=== PATIENT | male | born 1970 | race Caucasian/White ===

== ENCOUNTER 2021-07-24 11:31 | Emergency (ER) | payer OTHER ==
[2021-07-24 12:40] LABS: HEMOGLOBIN 17.6 gm/dl (14.0-17.5); RED BLOOD COUNT 5.28 M/UL (4.20-5.50); WHITE BLOOD COUNT 5.1 K/UL (4.5-11.0)
[2021-07-24 14:06] LABS: BUN/CREATININE RATIO 15 (0-10)
== END 2021-07-24 17:56 | disposition home or self-care (01) ==
LOC: ER1 11:31
PROVIDERS: Physician Assistant
DX: F10.939 Alcohol use, unspecified with withdrawal, unspecified (principal); R07.89 Other chest pain; I25.2 Old myocardial infarction; Z20.822 Contact with and (suspected) exposure to COVID-19; E11.9 Type 2 diabetes mellitus without complications; I10 Essential (primary) hypertension; F17.200 Nicotine dependence, unspecified, uncomplicated
CPT/HCPCS: 71045; 80053; 80307; 81001; 82550; 82553; 83690; 83735; 84484; 85025; 93005; 96374; 96375; 99285; G0480; J2060; J2405; J3411; J3475; J7030; U0002